=== PATIENT | female | born 1930 | race Caucasian/White ===

== ENCOUNTER 2016-09-07 15:57 | Observation (INO) | payer MEDICARE, OTHER ==
[2016-09-07 15:56] LABS: BASO % 0.6 % (0-2); EOS % 2.4 % (0-7); EOSINOPHIL ABSOLUTE COUNT 0.2 tho/cmm (0.0-0.7); HCT-HEMATOCRIT 38.1 % (34.0-49.0); HGB-HEMOGLOBIN 13.1 gm/dl (12.0-15.5); IMMATURE GRANULOCYTES ABSOLUTE 0.01 tho/cmm (0-0.03); IMMATURE GRANULOCYTES PERCENT 0.2 % (0-0.3); LYMPH % 29.8 % (20-45); LYMPH ABSOLUTE COUNT 1.9 tho/cmm (0.8-4.5); MCH (MEAN CORPUSCULAR HGB) 32.4 pg (28.0-32.0); MCHC MEAN CORPUSCULAR HGB CONC 34.4 % (32.0-36.0); MCV (MEAN CELL VOLUME) 94.3 fl (82.0-96.0); MEAN PLATELET VOLUME 10.2 cmc (9.4-12.4); MONO % 7.4 % (0-12); MONOCYTE ABSOLUTE COUNT 0.5 tho/cmm (0.0-1.2); NEUTROPHIL ABSOLUTE COUNT 3.8 tho/cmm (1.6-8.0); NEUTROPHIL-AUTOMATED 3.8 tho/cmm (1.6-8.0); NEUTROPHILS % 59.6 % (40-80); PLATELET COUNT 203 tho/cmm (150-450); RED BLOOD COUNT 4.04 mil/cmm (4.00-5.20); RED CELL DISTRIBUTION WIDTH 13.5 % (12.4-16.4); WHITE BLOOD COUNT 6.4 tho/cmm (4.0-10.0)
[~2016-09-07 15:57] MED LIST: ADULT ASPIRIN81 MG PO; ALBUTEROL17 GM INH; AMBIEN; AMBIEN PAK10 MG; AMBIEN10 M1 PO; AMBIEN10 MG PO; AMBIEN5 MG; AMITIZA24 MC1 PO; AMITIZA24 MCG; AMITIZA24 MCG PO; AMLODIPINE BESYL5 MG PO; ANTACID650 MG; ANTACID650 MG PO; ANTIVERT25 MG PO; ASPIR 8181 MG; ASPIRIN EC81 MG PO; ASPIRIN81 MG; ATIVAN0.5 MG; ATIVAN0.5 MG PO; CATAPRES0.1 MG; CELEBREX200 MG; CLONIDINE HCL0.1 MG; COZAAR50 M1 PO; COZAAR50 MG; COZAAR50 MG PO; CRESTOR20 MG; CRESTOR20 MG PO; CRESTOR20 MG/TAB PO; CYMBALTA30 M1 PO; DIFLUCAN100 MG PO; EES/SULFISOXAZ100 ML PO; ERYPED 400400 MG/5 M PO; ERYTHROMYC200 MG/51 PO; ERYTHROMYCIN ETHYLSUCCINATE PO; ERYTHROMYCIN PO; FISH OIL; FISH OIL 1,0001 CA PO; FISH OIL 1,0001 CA1; FISH OIL 1,0001 CAP; FISH OIL 11000 MG/CA PO; FLEX; FLEXERIL10 MG; FOLBEE; FUROSEMIDE20 M1 PO; FUROSEMIDE20 MG; GABAPENTIN300 M1 PO; GAS RELIEF; GAS RELIEF125 MG PO; HYDROCODONE; HYZAAR 100-12.51 TAB; ISOSORBIDE MONO30 M4 PO; K-DUR10 ME1 PO; KEFLEX500 MG PO; KLOR-CON M10 MEQ/TAB PO; LASIX20 MG; LASIX20 MG PO; LEVOTHYROXINE50 MC3 PO; LOPRESSOR50 M1 PO; LOPRESSOR50 MG; LOPRESSOR50 MG PO; LORAZEPAM; LORAZEPAM0.5 M1 PO; LORAZEPAM0.5 MG; MACROBID 100 M100 M1 PO; METHSCOPOLAMIN2.5 M1 PO; METHSCOPOLAMIN2.5 MG PO; METHYLDOPA250 MG; METOPROLOL TART25 MG; MILK OF MA400 MG/5 M PO; MIRALAX12 EA; MIRALAX17 GM PO; MONOPRIL20 MG; MONOPRIL20 MG PO; MULTIVITAMIN1 TAB; MULTIVITAMIN1 TAB PO; MYCOSTATIN100 K U/ML SSW; NEURONTIN100 MG; NITROGLYCERIN0.3 MG; NITROGLYCERIN0.4 M2 SL; NITROGLYCERIN0.4 MG; NITROQUICK0.4 MG SL; NORCO; NORCO 5/325 TAB1 TAB; NORCO 5/325 TAB1 TAB PO; NORVASC10 MG; NORVASC5 MG PO; OMEPRAZOLE20 MG; PANTOPRAZOLE SO40 M3 PO; PHENERGAN12.5 MG PO; PLAVIX75 M1 PO; PLAVIX75 MG; PLAVIX75 MG PO; POTASSIUM CHLO10 MEQ; PROMETHAZINE25 MG PO; PROTONIX40 MG; PROTONIX40 MG PO; PYRIDIUM200 M2 PO; REGLAN5 MG PO; SENNA; SODIUM BICARBONATE; STOOL SOFT-STI1 EACH PO; STOOL SOFTENER1 EAC4 PO; SYNTHROID50 MCG PO; TRAMADOL HCL50 MG PO; TRAZODONE HCL50 MG; TRAZODONE50 MG; TRAZODONE50 MG PO; TYLENOL325 M1 PO; TYLENOL325 M2 PO; ULTRAM50 MG; URISPAS100 MG PO; VITAMIN D-32000 UNIT; VITAMIN D1000 UNI1; VITAMIN D31000 UNI2 PO; VITAMINS; ZITHROMAX250 M1 PO; ZITHROMAX250MG Z-PAK PO; ZOFRAN ODT4 MG PO; ZOFRAN ODT4 MG/UDTAB PO; ZOFRAN4 MG PO; ZOFRAN8 MG PO; [UNRECOGNIZED DRUG - OTHER]; [UNRECOGNIZED DRUG - OTHER]
[2016-09-07 16:19] LABS: ANION GAP 13 mmol/L (0-20); BLOOD UREA NITROGEN 27 mg/dl (6-24); CALCIUM 8.6 mg/dl (8.5-10.5); CARBON DIOXIDE-VENOUS 20 mmol/L (22-32); CHLORIDE 112 mmol/l (96-110); CREATININE 1.54 mg/dl (0.50-1.10); GLUCOSE 132 mg/dL (70-110); POTASSIUM 3.7 mmol/L (3.7-5.1); SODIUM 141 mmol/L (135-145); eGFR VALUE FOR BLACK 36 mL/Min
[2016-09-07 16:55] LABS: URINE BILIRUBIN NEGATIVE (NEG); URINE BLOOD MODERATE (NEG); URINE GLUCOSE (UA) NEGATIVE (NEG); URINE KETONE NEGATIVE (NEG); URINE LEUKOCYTE ESTERASE POSITIVE (NEG); URINE NITRITE POSITIVE (NEG); URINE PROTEIN NEGATIVE (NEG); URINE SPECIFIC GRAVITY 1.015 (1.003-1.030)
[2016-09-07 16:57] LABS: URINE APPEARANCE CLOUDY; URINE COLOR YELLOW
[2016-09-07 17:09] LABS: URINE AMORPHOUS 1+; URINE BACTERIA 2+; URINE RBC RARE /[HPF] (0-5)
[2016-09-08 04:58] LABS: ANION GAP 11 mmol/L (0-20); BLOOD UREA NITROGEN 25 mg/dl (6-24); CALCIUM 8.1 mg/dl (8.5-10.5); CARBON DIOXIDE-VENOUS 24 mmol/L (22-32); CHLORIDE 116 mmol/l (96-110); CREATININE 1.38 mg/dl (0.50-1.10); GLUCOSE 100 mg/dL (70-110); POTASSIUM 3.9 mmol/L (3.7-5.1); SODIUM 147 mmol/L (135-145); eGFR VALUE FOR BLACK 41 mL/Min
[2016-09-09 06:06] LABS: ANION GAP 11 mmol/L (0-20); BLOOD UREA NITROGEN 23 mg/dl (6-24); CALCIUM 8.4 mg/dl (8.5-10.5); CARBON DIOXIDE-VENOUS 25 mmol/L (22-32); CHLORIDE 112 mmol/l (96-110); CREATININE 1.25 mg/dl (0.50-1.10); GLUCOSE 94 mg/dL (70-110); SODIUM 144 mmol/L (135-145); eGFR VALUE FOR BLACK 46 mL/Min
[2016-09-09] MEDS ORDERED: LEVAQUIN250 M3 (09:04)
== END 2016-09-09 10:05 ==
LOC: EDMED 15:57 → EMR2 18:12 → 5WE 19:19
PROVIDERS: Emergency Medicine; Family Medicine; Internal Medicine Cardiovascular Disease; ADMIT Hospitalist
DX: N39.0 Urinary tract infection, site not specified (principal); R53.1 Weakness; R11.0 Nausea; R10.9 Unspecified abdominal pain; E87.0 Hyperosmolality and hypernatremia; E87.8 Other disorders of electrolyte and fluid balance, not elsewhere classified; I12.9 Hypertensive chronic kidney disease with stage 1 through stage 4 chronic kidney disease, or unspecified chronic kidney disease; N18.3 Chronic kidney disease, stage 3 (moderate); N17.9 Acute kidney failure, unspecified; I25.10 Atherosclerotic heart disease of native coronary artery without angina pectoris; K21.9 Gastro-esophageal reflux disease without esophagitis; E78.5 Hyperlipidemia, unspecified; E03.9 Hypothyroidism, unspecified; M19.90 Unspecified osteoarthritis, unspecified site; K58.1 Irritable bowel syndrome with constipation; Z79.02 Long term (current) use of antithrombotics/antiplatelets; Z79.82 Long term (current) use of aspirin; Z79.899 Other long term (current) drug therapy; Z88.5 Allergy status to narcotic agent; Z90.710 Acquired absence of both cervix and uterus; Z95.1 Presence of aortocoronary bypass graft; Z95.5 Presence of coronary angioplasty implant and graft; Z98.890 Other specified postprocedural states
CPT/HCPCS: G0378; G8978-GP-CI; G8979-GP-CH; G8980-GP-CI; G8987-GO-CJ; G8988-GO-CH; G8989-GO-CJ; J0696; J2405; J3480; J7030